=== PATIENT | female | born 1950 | race Caucasian/White ===

== ENCOUNTER 2024-04-07 10:03 | Inpatient (IN) | payer MEDICARE, SELFPAY ==
[2024-04-07] VITALS (14 sets, daily range): BP systolic 100–147; BP diastolic 61–95; PULSE 88–108; RESP 18–30; TEMP 36.2–36.8; O2SAT 92–98; BMI 21.9
--- NOTE | 2024-04-07 10:11 | EKG12_ITS ---
Test Reason : SOB Blood Pressure : / mmHG Vent. Rate : 094 BPM Atrial Rate : 094 BPM P-R Int : 172 ms QRS Dur : 076 ms QT Int : 352 ms P-R-T Axes : 077 -61 060 degrees QTc Int : 440 ms Normal sinus rhythm Biatrial enlargement Left axis deviation Inferior infarct , age undetermined Abnormal ECG Confirmed by MIYA RANGEL, SHANNAN ([id number]), web content editor AMNA TRIPP ([id number]) on 04/08/2024 1:25:01 PM Referred By: Confirmed By:SHANNAN HOLLIDAY MD
--- NOTE | 2024-04-07 10:12 | ED.VIS.DYS ---
HPI History of Present Illness Chief Complaint: Shortness of Breath Detail of Chief Complaint: Shortness of breath Informant: patient Narrative Narrative: Patient presents with shortness of breath that started around 4:30 AM. Patient states she is visiting family from [place] and brought some small tanks of O2 with her but is gone through on her oxygen. Patient normally wears home O2. Tells me she has had a bit of a cough and runny nose for several days. Denies fevers. Patient noted to be hypoxic on arrival to the emergency department. She denies chest pain. [facility] Medical History (Updated 04/07/24 @ 11:[address] Amanda Robles, DO) Hypothyroid COPD (chronic obstructive pulmonary disease) Allergy/AdvReac Type Severity Reaction Status Date / Time Penicillins Allergy Mild Upset Verified 04/07/24 10:16 Stomach Family History unable to obtain Surgical History no surgical history Social History Smoking Status: Current every day smoker tobacco type: cigarettes ROS ROS ED Review of Systems ROS Unobtainable: other Constitutional Constitutional ED: Reports lethargy; Denies chills, fever(s), sweats or weight loss Eyes Eyes: Denies blurry vision, change in vision or diplopia ENT ENT ED: Reports rhinorrhea; Denies sore throat Cardiovascular Cardiovascular: Denies chest pain, orthopnea or racing heartbeat Respiratory/Chest Respiratory/Chest: Reports cough, dyspnea and dyspnea on exertion; Denies orthopnea or sputum Gastrointestinal Gastrointestinal: Denies abdominal pain, diarrhea, nausea or vomiting Genitourinary Genitourinary ED: Denies dysuria, hematuria or urinary frequency Musculoskeletal Musculoskeletal: Denies arthralgias, back pain, myalgias or neck pain Integumentary Denies abscess, Abrasions or rash Neurologic Neurologic: Denies headache(s) or weakness Psychiatric Psychiatric: Denies anxiety, depression or suicidal thoughts Endocrine Endocrinology: Denies polydipsia, polyphagia or polyuria Hematologic/Lymphatic Hematologic/Lymphatic: Denies easy bleeding, easy bruising or lymphadenopathy Allergic/Immunologic Allergic/Immunologic ED: Denies mouth swelling, tongue swelling or urticaria EXAM Physical Exam Const Vital Signs: 04/07/24 10:06 04/07/24 10:10 04/07/24 10:10 Temperature 98.0 F 98.3 F Temperature Source Oral Oral Pulse Rate 108 H 108 H Respiratory Rate 30 H 25 H Respiratory Effort Short of Breath Respiratory Depth Deep Respiratory Pattern Tachypnea Blood Pressure 147/89 H 147/89 H Blood Pressure Mean 108 108 Pulse Ox 94 94 Oxygen Delivery Method Nasal Cannula Nasal Cannula Nasal Cannula Oxygen Flow Rate (L/min) 5.5 5.5 5.5 04/07/24 10:11 04/07/24 10:55 Temperature Temperature Source Pulse Rate 92 Respiratory Rate 20 H Respiratory Effort Respiratory Depth Respiratory Pattern Tachypnea Blood Pressure Blood Pressure Mean Pulse Ox Oxygen Delivery Method Nasal Cannula Oxygen Flow Rate (L/min) 5.5 Positive well nourished and well developed General Appearance ED: well developed and NAD HEENT Reports TM's clear and moist mucous membranes normocephalic and atraumatic; Negative for trauma or tenderness Tympanic Membrane ED: Yes TM's clear Eyes PERRL and EOMs intact bilaterally General Eye ED: Negative for pale conjunctiva or scleral icterus Neck no lymphadenopathy, supple and no JVD General: Negative for tenderness Chest Wall inspection of chest normal and palpation of chest normal Chest: Negative for tenderness Resp No normal respiratory effort and No clear to auscultation bilaterally Resp Narrative: Patient with tachypnea with mild conversational dyspnea. Mild accessory muscle use. Diminished breath sounds bilaterally with expiratory wheezes throughout. Effort and Inspection: Negative for respiratory distress or pain with movement Auscultation: Negative for rhonchi, wheezes or diminished lung sounds Cardio regular rate, regular rhythm, S1 normal heart sound, S2 normal heart sound and no murmurs Peripheral Pulses: pulses 2+ throughout GI normal to inspection, nondistended, normoactive bowel sounds, soft to palpation, non-tender, non-distended and no masses Back/Spine no CVA tenderness and no thoracic nor lumbar tenderness Extremity normal to inspection General Extremety ED: Negative for edema General Extremity: Negative for edema Neuro oriented x3, CN's II-XII intact bilaterally, no sensory deficits noted and gait normal Sensorium / Orientation: awake, alert, oriented to person, oriented to place and oriented to time Motor Exam: strength 5/5 throughout and strength abnormal Psych mental status grossly normal Skin no rashes or lesions noted and no wounds MDM MDM MDM Narrative Medical decision making narrative: Patient presents with O2 sat of 78% on room air. She is tachypneic with accessory muscle use. In the differential would be COPD exacerbation versus pneumothorax versus pneumonia or viral infection. Also given recent travel in the differential would be PE. IV line established. She was given DuoNeb aerosol as well as albuterol aerosols and started on Solu-Medrol 125 mg IV. CBC with differential obtained showed a white count of 10.2 with hemoglobin 13.9 and platelet count of 278. Chemistries unremarkable. Lactate normal. Troponin normal at 5. EKG obtained showed sinus rhythm with ventricular rate of 94 bpm. Biatrial enlargement. 1 view chest x-ray obtained interpreted by myself as hyperinflation without evidence of infiltrate or pneumothorax or acute disease process. On repeat evaluation at 11:08 AM she is feeling improved but still somewhat tachypneic and on 5 L satting 88 to 90%. Case will be discussed with hospitalist to evaluate for admission Lab Data Attestation: I reviewed the patient's lab results. Labs: Laboratory Results - last 24 hr 04/07/24 04/07/24 10:05 10:20 WBC 10.2 RBC 4.68 Hgb 13.9 Hct 44.3 MCV 94.7 MCH 29.7 MCHC 31.4 L RDW Std Deviation 47.1 H RDW Coeff of Erica 13.5 Plt Count 278 MPV 11.3 Immature Gran % (Auto) 0.400 Neut % (Auto) 64.1 Lymph % (Auto) 21.9 [place] % (Auto) 8.4 Eos % (Auto) 4.2 Baso % (Auto) 1.0 Absolute Neuts (auto) 6.5 Absolute Lymphs (auto) 2.23 Nucleated RBC % 0 D-Dimer Quant (PE/DVT) 0.39 Sodium 140 Potassium 3.7 Chloride 105 Carbon Dioxide 32.0 Anion Gap 3 L BUN 12 Creatinine 0.75 Estim Creat Clear Calc 48.06 Est GFR (MDRD) Af Amer 97 Est GFR (MDRD) Non-Af 80 BUN/Creatinine Ratio 16.0 Glucose 113 H Lactic Acid 1.0 Calcium 9.4 Troponin I High Sens 5 Radiography Diagnostic Testin view chest x-ray obtained interpreted by myself as no evidence of infiltrate or pneumothorax or acute disease process Discharge Plan Dx/Rx/DC Orders Clinical Impression: COPD exacerbation, Respiratory failure, Hypoxemia Disposition Disposition: [facility]
[2024-04-07] MEDS: 0.9% Normal Saline (1000mL) 1,000 ML 150 ML IV (10:20)
[2024-04-07] MEDS: MethylPREDNISolone 125 MG/2 ML Vial IV (10:21)
[2024-04-07 10:23] LABS: Absolute Lymphocyte Count 2.23 X10^3/uL (0.83-4.51); Absolute Neutrophil Count 6.5 X10^3/uL (2.0-7.7); Eosinophil# 0.43 X10^3/uL; Eosinophils% 4.2 % (0-5); Hematocrit 44.3 % (37-47); Hemoglobin 13.9 g/dL (12.0-15.0); Lymphocyte # 2.23 X10^3/ul (0.83-4.51); Lymphocyte % 21.9 % (19-41); Mean Corp Hgb Conc 31.4 g/dL (32-36); Mean Corpuscular Hgb 29.7 pg (27.0-32.0); Mean Corpuscular Volume 94.7 fL (81-99); Mean Platelet Vol. 11.3 fl (6.2-12.0); Monocyte# 0.85 X10^3/uL; Monocyte% 8.4 % (0-10); NRBC Flagged by Analyzer 0 % (0-5); Neutrophil # 6.52 X10^3/uL (2.7-7.7); Neutrophil % 64.1 % (47-70); Platelet Count 278 K/mm3 (150-450); RBC Distribution Width CV 13.5 % (11.6-14.6); RBC Distribution Width SD 47.1 fl (35.1-43.9); Red Blood Count 4.68 M/mm3 (4.2-5.4); White Blood Count 10.2 K/mm3 (4.4-11.0)
[2024-04-07] MEDS: Albuterol 2.5 MG/3 ML VIAL.NEB. INHALATION (10:42)
[2024-04-07] MEDS: Ipratropium/Albuterol Sulfate 3 ML AMPUL.NEB INHALATION ×3 (10:42→22:59)
[2024-04-07 10:44] LABS: D-Dimer Quantitative (DVT/PE) 0.39 FEU/ug/m (0.27-0.49)
[2024-04-07 10:48] LABS: Anion Gap 3 (5-15); BUN 12 mg/dL (7-18); Calcium,Total 9.4 mg/dL (8.5-10.1); Chloride 105 mmol/L (98-107); Creatinine, Serum 0.75 mg/dL (0.55-1.02); EST Glomerular Filtration Rate 80 mL/min (>60); Est Glom Filt Rate - Afr Amer 97 mL/min (>60); Estimated Creatinine Clearance 48.06 ml/min; Glucose 113 mg/dL (74-106); Potassium 3.7 mmol/L (3.5-5.1); Sodium Level 140 mmol/L (136-145); Troponin-I HS 5 pg/mL (3.0-54.0)
--- NOTE | 2024-04-07 10:55 | RAD_ITS ---
STUDY: X-RAY CHEST REASON FOR EXAM: Female, 73 years old. dyspnea TECHNIQUE: Single AP portable view of the chest. COMPARISON: None. FINDINGS: EKG leads overlie the chest Lungs are hyperexpanded with chronic interstitial changes, no superimposed acute pulmonary process. Normal size heart. Normal mediastinum and [place]. Normal visualized pulmonary arteries. Normal visualized aortic arch and descending thoracic aorta. Normal visualized thoracic spine. Normal visualized ribs, clavicles, and shoulders. There is no demonstrated abnormality of the visualized soft tissue structures of the upper abdomen. RAD/Chest 1 View (Portable) IMPRESSION: Hyperexpanded lungs without a superimposed acute pulmonary process Electronically Signed: Mykel Love MD at 11:20 EDT ,
--- NOTE | 2024-04-07 11:19 | NURSING ---
PCU [facility] RESP FAILURE, COPD EXAC, HYPOXEMIA
--- NOTE | 2024-04-07 12:09 | HP.PCM.HOS_ITS ---
HPI - General General Date of Admission: 04/07/24 Date of Service: 04/07/24 Chief Complaint: Increasing SOB HPI Narrative GIOVANI JOSEPH, is a 73 F with history of COPD and chronic hypoxic respiratory failure supposed to be on home O2 continuously and hypothyroidism as well as tobacco use who presented to [facility] ED 04/07/2024 for increasing shortness of breath and cough. She is from [place] but has been here for 8 weeks. Reports history of COPD for which she is on continuous home O2 and inhalers, reports that she has still been using her inhalers this prescription is running out and she is trying to have this moved from [place]. Does report she has not been using her continuous home O2 as she only was able to bring small tanks with her from [place]. She does not know how much home O2 she is supposed to be on notes she is supposed to use it day and night. Reports she has been somewhat stressed over the past couple days and was having increased shortness of breath on exertion over the past couple days but this morning woke up at 4:30 in the morning with significant shortness of breath and put on the O2 she had with her however due to worsening she presented to the ED. Was 78% on room air when she arrived. Endorses a stuffy nose and sore throat over the past day or so with no fevers or chills. Has a cough but with clear sputum. Also has some headache. Denies any other new or focal complaints [facility] Medical History (Updated 04/07/24 @ 11:[address] Amanda Robles, DO) COPD (chronic obstructive pulmonary disease) Hypothyroid Home Medications ?Medication ?Instructions ?Recorded ?Last Taken ?Type albuterol sulfate 90 mcg/actuation 2 inh inhalation Q4H 04/07/24 04/07/24 History breath activated powder inhaler ipratropium 0.5 mg-albuterol 3 mg 3 ml inhalation Q8H 04/07/24 04/07/24 History (2.5 mg base)/3 mL nebulization soln levocetirizine 5 mg tablet 5 mg PO QPM 04/07/24 04/06/24 History levothyroxine 100 mcg tablet 100 mcg PO DAILY 04/07/24 04/06/24 History Allergy/AdvReac Type Severity Reaction Status Date / Time Penicillins Allergy Mild Upset Verified 04/07/24 10:16 Stomach Family History unable to obtain Surgical History no surgical history Social History Smoking Status: Current every day smoker tobacco type: cigarettes ROS ROS Narrative General: Denies fever/chills HENT: Slight headache, stuffy nose, sore throat EYES: Denies changes in vision Resp: Increased cough with clear sputum, increasing shortness of breath Cardiac: Denies chest pain GI: Denies abdominal pain, denies changes in bowel, denies nausea/vomiting : Denies changes in urination Extremity: Denies swelling MSK: Denies weakness Neuro: Denies any numbness/tingling Heme: Denies any bleeding or bruising Skin: Denies rashes Psychiatric: Has had some recent stress Vital Signs Vital Signs Vital Signs: 04/07/24 10:06 04/07/24 10:10 04/07/24 10:10 Temperature 98.0 F 98.3 F Temperature Source Oral Oral Pulse Rate 108 H 108 H Respiratory Rate 30 H 25 H Respiratory Effort Short of Breath Respiratory Depth Deep Respiratory Pattern Tachypnea Blood Pressure 147/89 H 147/89 H Blood Pressure Mean 108 108 Pulse Ox 94 94 Oxygen Delivery Method Nasal Cannula Nasal Cannula Nasal Cannula Oxygen Flow Rate (L/min) 5.5 5.5 5.5 04/07/24 10:11 04/07/24 10:55 04/07/24 11:05 Temperature Temperature Source Pulse Rate 92 99 Respiratory Rate 20 H 22 H Respiratory Effort Respiratory Depth Respiratory Pattern Tachypnea Blood Pressure 123/93 H Blood Pressure Mean 103 Pulse Ox 95 Oxygen Delivery Method Nasal Cannula Nasal Cannula Oxygen Flow Rate (L/min) 5.5 4.5 04/07/24 11:10 04/07/24 11:30 04/07/24 12:00 Temperature 98.3 F 98.3 F 98.3 F Temperature Source Oral Oral Pulse Rate 99 98 88 Respiratory Rate 22 H 18 26 H Respiratory Effort Respiratory Depth Respiratory Pattern Blood Pressure 123/93 H 133/95 H 141/92 H Blood Pressure Mean 103 107 108 Pulse Ox 95 94 98 Oxygen Delivery Method Nasal Cannula Nasal Cannula Oxygen Flow Rate (L/min) 4.5 4.5 04/07/24 12:00 Temperature Temperature Source Pulse Rate 88 Respiratory Rate 26 H Respiratory Effort Respiratory Depth Respiratory Pattern Blood Pressure 141/92 H Blood Pressure Mean 108 Pulse Ox 98 Oxygen Delivery Method Nasal Cannula Oxygen Flow Rate (L/min) 4.5 Weight Weight: 54.431 kg Body Mass Index (BMI) 21.9 Physical Exam Narrative General: Alert, oriented, HEENT: Atraumatic, normocephalic Eyes: Anicteric, normal conjunctiva, extraocular movements grossly intact Neck: Supple Respiratory: Scattered wheezes but overall diminished, increased respiratory effort especially with conversation Cardiovascular: Regular rate and rhythm GI: Soft, nontender, nondistended Extremities: No edema Musculoskeletal: Moving all extremities Neuro: No overt focal neurological deficits Skin: No rashes appreciated Psych: Cooperative Results Lab / Micro Data 04/07/24 10:05 04/07/24 10:05 Labs: Laboratory Results - last 24 hr 04/07/24 10:05: WBC 10.2, RBC 4.68, Hgb 13.9, Hct 44.3, MCV 94.7, MCH 29.7, MCHC 31.4 L, RDW Std Deviation 47.1 H, RDW Coeff of Erica 13.5, Plt Count 278, MPV 11.3, Immature Gran % (Auto) 0.400, Neut % (Auto) 64.1, Lymph % (Auto) 21.9, [place] % (Auto) 8.4, Eos % (Auto) 4.2, Baso % (Auto) 1.0, Absolute Neuts (auto) 6.5, Absolute Lymphs (auto) 2.23, Nucleated RBC % 0, D-Dimer Quant (PE/DVT) 0.39, Sodium 140, Potassium 3.7, Chloride 105, Carbon Dioxide 32.0, Anion Gap 3 L, BUN 12, Creatinine 0.75, Estim Creat Clear Calc 48.06, Est GFR (MDRD) Af Amer 97, Est GFR (MDRD) Non-Af 80, BUN/Creatinine Ratio 16.0, Glucose 113 H, Calcium 9.4, Troponin I High Sens 5 04/07/24 10:20: Lactic Acid 1.0 Micro: Microbiology 04/07/24 10:25 Mucosa - Nose SARS-CoV-2, Influenza & RSV (PCR) - Final Imaging Radiology Impression Chest X-Ray 04/07/24 10:55 IMPRESSION: Hyperexpanded lungs without a superimposed acute pulmonary process Electronically Signed: Mykel Love MD at 11:20 EDT , Assessment & Plan Assessment/Plan (1) COPD exacerbation: PLAN: Plan # Acute on chronic hypoxic respiratory failure secondary to acute exacerbation of chronic COPD -Patient reportedly supposed to be on continuous home O2 but due to visiting from [place] she has not been able to wear her continuous O2 for the past 8 weeks -Chest x-ray no acute process -Lab workup overall unremarkable -Patient with increased shortness of breath and cough consistent with COPD exacerbation -Admit to floor, continuous O2 monitoring -COVID-negative, we will obtain respiratory panel, sputum culture if able -O2 in place, wean as tolerated -IV methylprednisone -Scheduled DuoNebs -Antibiotics: Azithromycin -Incentive spirometer -Mucinex -Will also consult case management #Hypothyroidism -Continue Synthroid #Tobacco use -Advise cessation -Nicotine replacement available if desired #DVT ppx: Lovenox subcu Anu Heredia MD Charges/Coding Visit Charges Inpatient E&M: 55058 Init Hosp L1
[2024-04-07] MEDS: Azithromycin 250 MG Tablet 500 MG PO (14:07)
[2024-04-07] MEDS: Loratadine 10 MG Tablet PO (21:15)
[2024-04-07] MEDS: guaiFENesin 1,200 MG Tablet 1200 MG PO (21:15)
[2024-04-07] MEDS: 0.9% Saline Lock 10 ML Syringe IV (21:18)
[2024-04-08] VITALS (15 sets, daily range): BP systolic 105–121; BP diastolic 60–75; PULSE 91–107; RESP 16–28; TEMP 36.1–36.7; O2SAT 3–98
[2024-04-08] MEDS: Ipratropium/Albuterol Sulfate 3 ML AMPUL.NEB INHALATION ×6 (02:46→23:29)
[2024-04-08] MEDS: Levothyroxine 100 MCG Tablet PO (05:07)
[2024-04-08 06:55] LABS: Absolute Lymphocyte Count 0.84 X10^3/uL (0.83-4.51); Absolute Neutrophil Count 7.2 X10^3/uL (2.0-7.7); Basophil# 0.02 X10^3/uL; Basophil% 0.2 % (0-1); Hematocrit 39.9 % (37-47); Hemoglobin 12.7 g/dL (12.0-15.0); Lymphocyte # 0.84 X10^3/ul (0.83-4.51); Lymphocyte % 9.7 % (19-41); Mean Corp Hgb Conc 31.8 g/dL (32-36); Mean Corpuscular Volume 94.3 fL (81-99); Mean Platelet Vol. 11.2 fl (6.2-12.0); Monocyte% 6.9 % (0-10); NRBC Flagged by Analyzer 0 % (0-5); Neutrophil # 7.17 X10^3/uL (2.7-7.7); Neutrophil % 82.5 % (47-70); Platelet Count 230 K/mm3 (150-450); RBC Distribution Width CV 13.5 % (11.6-14.6); RBC Distribution Width SD 46.4 fl (35.1-43.9); Red Blood Count 4.23 M/mm3 (4.2-5.4); White Blood Count 8.7 K/mm3 (4.4-11.0)
[2024-04-08 08:42] LABS: Anion Gap 5 (5-15); BUN 14 mg/dL (7-18); BUN/Creat Ratio 19.9 RATIO (10-20); Calcium,Total 9.2 mg/dL (8.5-10.1); Chloride 106 mmol/L (98-107); EST Glomerular Filtration Rate 86 mL/min (>60); Est Glom Filt Rate - Afr Amer 104 mL/min (>60); Estimated Creatinine Clearance 47.67 ml/min; Glucose 168 mg/dL (74-106); Magnesium 2.6 mg/dL (1.6-2.6); Potassium 4.2 mmol/L (3.5-5.1); Sodium Level 138 mmol/L (136-145); Thyroid Stim Hormone (TSH) 0.231 uIU/mL (0.358-3.740)
[2024-04-08] MEDS: Azithromycin 250 MG Tablet 500 MG PO (09:31)
[2024-04-08] MEDS: guaiFENesin 1,200 MG Tablet 1200 MG PO ×2 (09:31→21:07)
--- NOTE | 2024-04-08 14:13 | PCM.PN.HOSP ---
Reason for Visit Reason for Visit: Diagnoses Chronic obstructive pulmonary disease with (acute) exacerbation (04/07/24) Subjective Subjective Still having increased shortness of breath but slowly improving Objective Data Objective Data Vital Signs: Vital Signs Temp Pulse Resp BP Pulse Ox O2 Del Method O2 Flow Rate 97.6 F L 91 24 H 108/67 96 Nasal Cannula 2 04/08/24 09:30 04/08/24 11:13 04/08/24 11:13 04/08/24 09:30 04/08/24 09:32 04/08/24 09:32 04/08/24 09:32 Oxygen Flow Rate (L/min) 2 Oxygen Delivery Method Nasal Cannula Weight: 49.7 kg Body Mass Index (BMI) 20.0 Intake & Output: Intake and Output for Last 24 Hours 04/06/24 04/07/24 04/08/24 23:59 23:59 23:59 Intake Total 685 / 685 400 / 400 Balance 685 / 685 400 / 400 Lab / Micro Data 04/08/24 06:02 04/08/24 06:02 Labs: Laboratory Results - last 24 hr 04/08/24 06:02: WBC 8.7, RBC 4.23, Hgb 12.7, Hct 39.9, MCV 94.3, MCH 30.0, MCHC 31.8 L, RDW Std Deviation 46.4 H, RDW Coeff of Erica 13.5, Plt Count 230, MPV 11.2, Immature Gran % (Auto) 0.700, Neut % (Auto) 82.5 H, Lymph % (Auto) 9.7 L, [place] % (Auto) 6.9, Eos % (Auto) 0.0, Baso % (Auto) 0.2, Absolute Neuts (auto) 7.2, Absolute Lymphs (auto) 0.84, Nucleated RBC % 0, Sodium 138, Potassium 4.2, Chloride 106, Carbon Dioxide 27.0, Anion Gap 5, BUN 14, Creatinine 0.70, Estim Creat Clear Calc 47.67, Est GFR (MDRD) Af Amer 104, Est GFR (MDRD) Non-Af 86, BUN/Creatinine Ratio 19.9, Glucose 168 H, Calcium 9.2, Magnesium 2.6, TSH 0.231 L Micro: Microbiology 04/07/24 14:10 Sputum, Expectorated/Coughed Gram Stain - Final 04/07/24 14:10 Sputum, Expectorated/Coughed Respiratory Culture - Preliminary Appears to be normal respiratory levar. Further studies to follow. 04/07/24 14:10 Mucosa - Nose Respiratory Panel (PCR) - Final Rhinovirus 04/07/24 10:25 Mucosa - Nose SARS-CoV-2, Influenza & RSV (PCR) - Final Physical Exam Narrative General: Alert, oriented, HEENT: Atraumatic, normocephalic Eyes: Anicteric, normal conjunctiva, extraocular movements grossly intact Neck: Supple Respiratory: Diffuse wheezes, increased respiratory effort especially with conversation Cardiovascular: Regular rate GI: Soft, nontender, nondistended Extremities: No edema Musculoskeletal: Moving all extremities Neuro: No overt focal neurological deficits Skin: No rashes appreciated Psych: Cooperative Assessment & Plan Assessment/Plan (1) COPD exacerbation: PLAN: Plan # Acute on chronic hypoxic respiratory failure secondary to acute exacerbation of chronic COPD secondary to acute rhinovirus infection -Patient reportedly supposed to be on continuous home O2 but due to visiting from [place] she has not been able to wear her continuous O2 for the past 8 weeks -Chest x-ray no acute process -Lab workup overall unremarkable -Patient with increased shortness of breath and cough consistent with COPD exacerbation -Admit to floor, continuous O2 monitoring -COVID-negative, we will obtain respiratory panel, sputum culture if able -O2 in place, wean as tolerated -IV methylprednisone -Scheduled DuoNebs -Antibiotics: Azithromycin -Incentive spirometer -Mucinex -Will also consult case management -04/08: Patient dropped down to 84% on 3 L nasal cannula overnight and required up titration, O2 sats improving throughout the day today, patient found to be rhinovirus positive, continue IV steroids, continue nebs, continue azithromycin, supportive care. Continue to wean O2 as able Chronic medical problems: #Hypothyroidism -Continue Synthroid #Tobacco use -Advise cessation -Nicotine replacement available if desired #DVT ppx: Lovenox subcu Anu Heredia MD Charges/Coding Visit Charges Inpatient E&M: 60830 Subs Hosp L1
[2024-04-08] MEDS: 0.9% Saline Lock 10 ML Syringe IV (14:17)
[2024-04-08] MEDS: Loratadine 10 MG Tablet PO (21:07)
[2024-04-09] VITALS (10 sets, daily range): BP systolic 111–131; BP diastolic 66–83; PULSE 83–109; RESP 16–28; TEMP 36–36.6; O2SAT 93–96
[2024-04-09] MEDS: Levothyroxine 100 MCG Tablet PO (05:52)
[2024-04-09 06:41] LABS: Absolute Lymphocyte Count 1.11 X10^3/uL (0.83-4.51); Absolute Neutrophil Count 10.9 X10^3/uL (2.0-7.7); Basophil# 0.02 X10^3/uL; Basophil% 0.2 % (0-1); Hemoglobin 13.2 g/dL (12.0-15.0); Lymphocyte # 1.11 X10^3/ul (0.83-4.51); Lymphocyte % 8.7 % (19-41); Mean Corp Hgb Conc 31.4 g/dL (32-36); Mean Corpuscular Hgb 30.2 pg (27.0-32.0); Mean Corpuscular Volume 96.1 fL (81-99); Mean Platelet Vol. 10.3 fl (6.2-12.0); Monocyte# 0.68 X10^3/uL; Monocyte% 5.3 % (0-10); NRBC Flagged by Analyzer 0 % (0-5); Neutrophil % 84.9 % (47-70); Platelet Count 284 K/mm3 (150-450); RBC Distribution Width CV 13.6 % (11.6-14.6); RBC Distribution Width SD 48.7 fl (35.1-43.9); Red Blood Count 4.37 M/mm3 (4.2-5.4); White Blood Count 12.8 K/mm3 (4.4-11.0)
[2024-04-09 07:27] LABS: Anion Gap 6 (5-15); BUN 19 mg/dL (7-18); BUN/Creat Ratio 24.8 RATIO (10-20); Calcium,Total 9.2 mg/dL (8.5-10.1); Chloride 104 mmol/L (98-107); Creatinine, Serum 0.77 mg/dL (0.55-1.02); EST Glomerular Filtration Rate 78 mL/min (>60); Est Glom Filt Rate - Afr Amer 94 mL/min (>60); Estimated Creatinine Clearance 47.67 ml/min; Glucose 145 mg/dL (74-106); Potassium 4.3 mmol/L (3.5-5.1); Sodium Level 138 mmol/L (136-145)
[2024-04-09] MEDS: Ipratropium/Albuterol Sulfate 3 ML AMPUL.NEB INHALATION ×5 (07:59→22:52)
[2024-04-09] MEDS: Azithromycin 250 MG Tablet 500 MG PO (09:36)
[2024-04-09] MEDS: guaiFENesin 1,200 MG Tablet 1200 MG PO ×2 (09:36→21:40)
--- NOTE | 2024-04-09 11:25 | CASEMGMT ---
ANIBAL SUÁREZ Face to Face with patient for initial transition planning/care coordination assessment. ANIBAL SUÁREZ introduced self and role at [facility]. Patient lying in bed, alert and oriented. Patient willing to participate in assessment and is able to answer all questions appropriately. Care providers, pharmacy, and demographics verified. Strata: 2 PCP: Michelle Haider in [place] [phone], patient to schedule appointment when she returns home. Specialists: none Preferred Pharmacy: [facility] retail at discharge. Insurance: [employer] [facility] Prescription Benefit: yes Living Will/HPOA: yes, daughter Stephanie Alexis LNOK: daughter Living Arrangements: Patient lives in [facility] but has been visiting and staying with her daughter since mid January. Daughter lives in a 2 story duplex. Patient is independent and able to ambulate stairs. Transportation: self, daughter DME/HHC: Patient has nebulizer but is out of medications. Patient has home oxygen through [employer] and only has 6 mini tanks that she traveled with, which she has been exchanging at [facility]. Patient did not bring concentrator with her as it would not fit into her vehicle. Patient denies previous HHC or SNF. Patient wishes to discharge home. Patient is concerned about oxygen needs for when she travels back home to [place]. Patient states she stops in [place], [place] as a half way carmella. ANIBAL SUÁREZ called [facility] and spoke with Debbi. Patient is not able to rent POC. Per Debbi, patient can exchange portable tanks at any [facility] location. Debbi states she contacted [facility] office and provided this ANIBAL SUÁREZ inforamtion. ANIBAL SUÁREZ located locations along patient's route on [employer] website. ANIBAL SUÁREZ called [facility] saw office to inquire about patient having a concentrator at daughter home while she is visiting. Per Lyn, she will reach out to local branch in [place] to arrange for delivery. ANIBAL SUÁREZ provided daughter's information to arrange for delivery. ANIBAL SUÁREZ updated patient, daughter on speaker, phone regarding checkpoints along patient's route to home and concentrator delivery. Patient provided with contact info for branches and website information to plan her checkpoints. Daughter states she will assist with mapping route and DME agencies. Patient and daughter state they have no further needs or concerns at this time. CM to follow for discharge planning needs that may arise. Disposition Plan: Patient to discharge with home oxygen plan, daughter support, and follow-up plans in place. Dee Dee HARRISN, RN, CM
[2024-04-09] MEDS: 0.9% Saline Lock 10 ML Syringe IV (13:35)
--- NOTE | 2024-04-09 16:34 | CHAPLAIN ---
Type of Pastoral Visit _x__ Initial Visit ___ Follow-up Visit ___ On-call Visit ___ General Patient Visit ___ Spiritual Assessment ___ Family Conference ___ Bereavement ___ Rapid Response ___ Code Blue ___ Other (describe below) Pastoral Care Referral From _x__ Patient ___ Family ___ Nurse ___ Physician ___ Implementation Consultant ___ Manager User Interface ___ Other (describe below) Sacrament/Intervention _x__ Active listening ___ Anointing ___ Moravian ___ Bereavement ___ Communion ___ Sendy exploration ___ _x__ Life review _x__ Prayer ___ Reconciliation ___ Sacrament of Sick _x__ Supportive presence ___ Wedding ___ Other (describe below) Pastoral Comments patient reports feeling better but expresses disappointment that this occurred because she was to help take care of her grandchildren; [place] is from out [place]; pt is talkative and expressive thanks for the spiritual care support; pt has concerns about driving home; pt has family here and family in [place] where she lives
--- NOTE | 2024-04-09 17:25 | PCM.PN.HOSP ---
Reason for Visit Reason for Visit: Diagnoses Chronic obstructive pulmonary disease with (acute) exacerbation (04/07/24) Subjective Subjective Patient feels somewhat worse today, chest congestion, still significant diffuse wheezing Objective Data Objective Data Vital Signs: Vital Signs Temp Pulse Resp BP Pulse Ox O2 Del Method O2 Flow Rate 97.7 F L 108 H 18 111/69 94 Nasal Cannula 2 04/09/24 15:35 04/09/24 15:35 04/09/24 15:35 04/09/24 15:35 04/09/24 15:35 04/09/24 15:35 04/09/24 15:35 Oxygen Flow Rate (L/min) 2 Oxygen Delivery Method Nasal Cannula Weight: 49.7 kg Body Mass Index (BMI) 20.0 Intake & Output: Intake and Output for Last 24 Hours 04/07/24 04/08/24 04/09/24 23:59 23:59 23:59 Intake Total 685 / 685 860 / 1110 500 / 500 Balance 685 / 685 860 / 1110 500 / 500 Medical Nutrition Assessment Dietitian: Malnutrition Criteria Met Start: 04/08/24 15:57 Freq: Status: Active Protocol: Document 04/08/24 15:57 SB (Rec: 04/08/24 15:57 SB [id number]) Nutrition Malnutrition Evidence of Malnutrition Exists Yes Malnutrition (severe): Acute Illness/Injury Evidenced By Suboptimal Energy Intake ( Severe),Weight Loss (Severe), Physical Changes (Moderate) Clinical Problem Acute Disease or Injury Related Malnutrition Etiology severe related to inadequate oral intake Signs/Symptoms as evidenced by PO intake <50% of estimated nutritional needs x 2-3 weeks, 9.2% unintentional weight loss x 1 month per pt reports, moderate muscle wasting in clavicle region, and BMI 20.0. Status Active Problem Recommendation Dietitian Recommendations/Changes Continue liberal regular diet, encourage improved intake at home. Will order 240ml ensure clear with breakfast to try as pt is refusing ensure plus high protein. Will order 1 scoop of beneprotein TID with meals. Will monitor weight, as available. Reviewed and approved by Jackie Choudhury, MS, RD, LD. Lab / Micro Data 04/09/24 06:15 04/09/24 06:15 Labs: Laboratory Results - last 24 hr 04/09/24 06:15: WBC 12.8 H, RBC 4.37, Hgb 13.2, Hct 42.0, MCV 96.1, MCH 30.2, MCHC 31.4 L, RDW Std Deviation 48.7 H, RDW Coeff of Erica 13.6, Plt Count 284, MPV 10.3, Immature Gran % (Auto) 0.900, Neut % (Auto) 84.9 H, Lymph % (Auto) 8.7 L, [place] % (Auto) 5.3, Eos % (Auto) 0.0, Baso % (Auto) 0.2, Absolute Neuts (auto) 10.9 H, Absolute Lymphs (auto) 1.11, Nucleated RBC % 0, Sodium 138, Potassium 4.3, Chloride 104, Carbon Dioxide 28.0, Anion Gap 6, BUN 19 H, Creatinine 0.77, Estim Creat Clear Calc 47.67, Est GFR (MDRD) Af Amer 94, Est GFR (MDRD) Non-Af 78, BUN/Creatinine Ratio 24.8 H, Glucose 145 H, Calcium 9.2 Micro: Microbiology 04/07/24 10:20 Blood Culture (Wb) - Anticubital Right Blood Culture - Preliminary No growth in 48 hours. 04/07/24 14:10 Sputum, Expectorated/Coughed Gram Stain - Final 04/07/24 14:10 Sputum, Expectorated/Coughed Respiratory Culture - Preliminary Appears to be normal respiratory levar. Further studies to follow. 04/07/24 14:10 Mucosa - Nose Respiratory Panel (PCR) - Final Rhinovirus 04/07/24 10:25 Mucosa - Nose SARS-CoV-2, Influenza & RSV (PCR) - Final Physical Exam Narrative General: Alert, oriented HEENT: Atraumatic, normocephalic Eyes: Anicteric, normal conjunctiva, extraocular movements grossly intact Neck: Supple Respiratory: Diffuse wheezes, increased respiratory effort especially with conversation Cardiovascular: Regular rate GI: Soft, nontender, nondistended Extremities: No edema Musculoskeletal: Moving all extremities Neuro: No overt focal neurological deficits Skin: No rashes appreciated Psych: Cooperative Assessment & Plan Assessment/Plan (1) COPD exacerbation: PLAN: Plan # Acute on chronic hypoxic respiratory failure secondary to acute exacerbation of chronic COPD secondary to acute rhinovirus infection -Patient reportedly supposed to be on continuous home O2 but due to visiting from [place] she has not been able to wear her continuous O2 for the past 8 weeks -Chest x-ray no acute process -Lab workup overall unremarkable -Patient with increased shortness of breath and cough consistent with COPD exacerbation -Admit to floor, continuous O2 monitoring -COVID-negative, we will obtain respiratory panel, sputum culture if able -O2 in place, wean as tolerated -IV methylprednisone -Scheduled DuoNebs -Antibiotics: Azithromycin -Incentive spirometer -Mucinex -Will also consult case management -04/08: Patient dropped down to 84% on 3 L nasal cannula overnight and required up titration, O2 sats improving throughout the day today, patient found to be rhinovirus positive, continue IV steroids, continue nebs, continue azithromycin, supportive care. Continue to wean O2 as able -04/09: Continues to have increased work of breathing with poor reserve, waxing and waning course but patient clinically still unwell and not yet ready for discharge. Continue nebs, azithromycin, IV steroids Chronic medical problems: #Hypothyroidism -Continue Synthroid #Tobacco use -Advise cessation -Nicotine replacement available if desired #DVT ppx: Lovenox subcu Anu Heredia MD Charges/Coding Visit Charges Inpatient E&M: 72951 Subs Hosp L1
[2024-04-09] MEDS: Loratadine 10 MG Tablet PO (21:40)
[2024-04-10 02:50] VITALS: PULSE 90; RESP 20
[2024-04-10] MEDS: Ipratropium/Albuterol Sulfate 3 ML AMPUL.NEB INHALATION ×3 (02:51→10:39)
[2024-04-10 03:20] VITALS: BP 110/69; PULSE 105; RESP 16; TEMP 36.1; O2SAT 96
[2024-04-10] MEDS: Levothyroxine 100 MCG Tablet PO (05:37)
[2024-04-10] MEDS: 0.9% Saline Lock 10 ML Syringe IV (05:37)
[2024-04-10 07:41] VITALS: PULSE 108; RESP 22; O2SAT 93
[2024-04-10 08:31] LABS: Absolute Lymphocyte Count 0.98 X10^3/uL (0.83-4.51); Absolute Neutrophil Count 9.1 X10^3/uL (2.0-7.7); Basophil# 0.01 X10^3/uL; Basophil% 0.1 % (0-1); Hematocrit 41.7 % (37-47); Hemoglobin 12.8 g/dL (12.0-15.0); Lymphocyte # 0.98 X10^3/ul (0.83-4.51); Lymphocyte % 9.2 % (19-41); Mean Corp Hgb Conc 30.7 g/dL (32-36); Mean Corpuscular Hgb 29.4 pg (27.0-32.0); Mean Corpuscular Volume 95.6 fL (81-99); Mean Platelet Vol. 11.4 fl (6.2-12.0); Monocyte# 0.53 X10^3/uL; NRBC Flagged by Analyzer 0 % (0-5); Platelet Count 185 K/mm3 (150-450); RBC Distribution Width CV 13.7 % (11.6-14.6); RBC Distribution Width SD 48.9 fl (35.1-43.9); Red Blood Count 4.36 M/mm3 (4.2-5.4); White Blood Count 10.7 K/mm3 (4.4-11.0)
[2024-04-10 08:49] LABS: Anion Gap 7 (5-15); BUN 21 mg/dL (7-18); BUN/Creat Ratio 26.5 RATIO (10-20); Calcium,Total 9.3 mg/dL (8.5-10.1); Chloride 101 mmol/L (98-107); Creatinine, Serum 0.79 mg/dL (0.55-1.02); EST Glomerular Filtration Rate 75 mL/min (>60); Est Glom Filt Rate - Afr Amer 91 mL/min (>60); Estimated Creatinine Clearance 47.67 ml/min; Glucose 146 mg/dL (74-106); Sodium Level 138 mmol/L (136-145)
--- NOTE | 2024-04-10 09:00 | DCINST_ITS ---
Discharge Instructions Diet Discharge Diet: No restrictions Activity Discharge Activity: Return to Normal Activity Weight Bearing Status: Weight bearing as tolerated Dressing / Incision Call your doctor if you observe: Fever of 101 or Higher, Coldness, Increased Pain, Numbness or Tingling, Change in Color, Inability to urinate, Inability to have a bowel movement, Shortness of breath, Dizziness, Fainting spells, Swelling in the ankles, Chest pain, Prolonged hiccupping, Increased palpitations (irregular heartbeat) and Calf discomfort Follow Up Care When: IN 2 WEEKS Test Results: Test results from this visit will be discussed in further detail at your follow- up appointment, if applicable. Discharge Plan Admission Admit Date/Time: 04/07/24 12:09 Primary Reason for Your Visit: COPD exacerbation from rhinovirus Attending Provider: Fabio Pittman Primary Care Provider: Gabino Bolivar,Vanita Primary Consulting Providers: Anu Heredia Discharge Orders/Prescriptions Prescriptions: New dextromethorphan-guaifenesin [Mucinex DM] 60-1,200 mg tablet extended release 12 hr 1 tab PO Q12H 7 Days Qty: 14 0RF prednisone 20 mg tablet 40 mg PO DAILY 5 Days Qty: 10 0RF Continued albuterol sulfate 90 mcg/actuation aerosol powdr breath activated 2 inh inhalation Q4H levothyroxine 100 mcg tablet 100 mcg PO DAILY levocetirizine 5 mg tablet 5 mg PO QPM Changed ipratropium-albuterol 0.5 mg-3 mg(2.5 mg base)/3 mL solution for nebulization 3 ml inhalation Q6H PRN (Reason: sob) 30 Days Qty: 180 0RF Referrals / Follow Up: Care Physician,No Primary [Primary Care Provider] - Disposition Disposition (needs filled in before D/C Order can be placed): Home, Self Care
--- NOTE | 2024-04-10 09:05 | PCM.DC.SUM ---
Providers Date of Admission: 04/07/24 Date of Discharge: 04/10/24 Primary Care Physician: No Primary Care Phys Reason For Visit: RESP FAILURE, COPD EXACERBATION, HYPOXEMIA Diagnosis Discharge Diagnosis (1) COPD exacerbation: Status: Chronic Code(s): J44.1 - Chronic obstructive pulmonary disease with (acute) exacerbation Plan # Acute on chronic hypoxic respiratory failure secondary to acute exacerbation of chronic COPD secondary to acute rhinovirus infection -Patient reportedly supposed to be on continuous home O2 but due to visiting from [place] she has not been able to wear her continuous O2 for the past 8 weeks -Chest x-ray no acute process -Lab workup overall unremarkable. COVID-negative. Respiratory panel positive for rhinovirus. Triple PCR for COVID-19, influenza and RSV are negative. Patient was treated with IV Solu-Medrol, completed 3 days of Zithromax, bronchodilator and Mucinex DM, incentive spirometry/PEP. 04/10: Was smoking 4 cigarettes daily for long time, quit 2 years ago. Patient shortness of breath is much improved. Patient has chronic wheezing. She wants to go home. On baseline 2 L of oxygen. Home oxygen qualification test. Patient completed 3 days of azithromycin 500 mg daily. Prescription for DuoNeb nebulization, Mucinex DM and prednisone burst therapy given. Discharge medication reconciliation done. Discharge follow-up instructions completed. Discharge process discussed with the patient and all questions were answered to patient's satisfaction. Follow with PCP in 1 to 2 weeks Total time spent, exact 35 minutes on discharge meds reconciliation, examination, coordination of care with nurses and ancillary staff, review of imaging and blood test and discussion with the patient on follow-up instructions. Medications at Discharge Home Medications albuterol sulfate 90 mcg/actuation breath activated powder inhaler 2 inh inhalation Q4H 04/07/24 levocetirizine 5 mg tablet 5 mg PO QPM 04/07/24 levothyroxine 100 mcg tablet 100 mcg PO DAILY 04/07/24 dextromethorphan-guaifenesin ER 60 mg-1,200 mg tab,extend release,12hr (Mucinex DM) 1 tab PO Q12H 7 days #14 tabs 04/10/24 ipratropium 0.5 mg-albuterol 3 mg (2.5 mg base)/3 mL nebulization soln 3 ml inhalation Q6H PRN sob 1 month #180 mL 04/10/24 prednisone 20 mg tablet 40 mg (2 x 20 mg) PO DAILY 5 days #10 tabs 04/10/24 Physical Exam Narrative Seen and examined. This shortness of breath is much improved. No chest pain. No fever. Physical exam General: Alert, Oriented x3, Cooperative. BMI 28.0 kg/m? HEENT: Atraumatic, PERRLA, EOMI, Normocephalic Oral: No Gingival or Mucosal Lesions/ Ulcerations Neck: Supple, No JVD, Negative Carotid Bruits Chest wall/Lungs: Air entry diminished in bilateral lung bases. Bilateral wheezing. No tachypnea. Baseline oxygen. Cardiovascular: Regular rate, Regular Rhythm, Normal S1, Normal S2, No M/G/R Abdomen: Bowel Sounds Present, Soft, Non Tender, Non-Distended : No dysuria. No renal angle tenderness. No suprapubic tenderness. Extremities: No edema, Capillary Refill Less than 3 Seconds Skin: No rashes, No breakdown Musculoskeletal: No Tenderness to Palpation of Joints or Extremities. Mild decrease muscle bulk of extremities, loss of subcutaneous fat suggestive mild chronic malnutrition due to emphysema Neurological: Cranial nerves II-XII grossly intact, DTR 2+/4. No acute focal neurological deficit. Psych/Mental Status: Normal Affect, Appropriate. Medical Records Data Medical Nutrition Assessment Dietitian: Malnutrition Criteria Met Start: 04/08/24 15:57 Freq: Status: Active Protocol: Document 04/08/24 15:57 (Rec: 04/08/24 15:57 [id number]) Nutrition Malnutrition Evidence of Malnutrition Exists Yes Malnutrition (severe): Acute Illness/Injury Evidenced By Suboptimal Energy Intake ( Severe),Weight Loss (Severe), Physical Changes (Moderate) Clinical Problem Acute Disease or Injury Related Malnutrition Etiology severe related to inadequate oral intake Signs/Symptoms as evidenced by PO intake <50% of estimated nutritional needs x 2-3 weeks, 9.2% unintentional weight loss x 1 month per pt reports, moderate muscle wasting in clavicle region, and BMI 20.0. Status Active Problem Recommendation Dietitian Recommendations/Changes Continue liberal regular diet, encourage improved intake at home. Will order 240ml ensure clear with breakfast to try as pt is refusing ensure plus high protein. Will order 1 scoop of beneprotein TID with meals. Will monitor weight, as available. Reviewed and approved by Jackie Choudhury, MS, RD, LD. Weight / BMI Weight Weight: 109 lb 9.116 oz Body Mass Index (BMI) 20.0 ABG / Lab / Microbiology Data 04/10/24 07:21 04/10/24 07:21 Laboratory: Laboratory Results - last 24 hr 04/10/24 07:21: WBC 10.7, RBC 4.36, Hgb 12.8, Hct 41.7, MCV 95.6, MCH 29.4, MCHC 30.7 L, RDW Std Deviation 48.9 H, RDW Coeff of Erica 13.7, Plt Count 185, MPV 11.4, Immature Gran % (Auto) 0.700, Neut % (Auto) 85.0 H, Lymph % (Auto) 9.2 L, [place] % (Auto) 5.0, Eos % (Auto) 0.0, Baso % (Auto) 0.1, Absolute Neuts (auto) 9.1 H, Absolute Lymphs (auto) 0.98, Nucleated RBC % 0, Sodium 138, Potassium 4.0, Chloride 101, Carbon Dioxide 30.0, Anion Gap 7, BUN 21 H, Creatinine 0.79, Estim Creat Clear Calc 47.67, Est GFR (MDRD) Af Amer 91, Est GFR (MDRD) Non-Af 75, BUN/Creatinine Ratio 26.5 H, Glucose 146 H, Calcium 9.3 Microbiology: Microbiology 04/07/24 14:10 Sputum, Expectorated/Coughed Gram Stain - Final 04/07/24 14:10 Sputum, Expectorated/Coughed Respiratory Culture - Final 04/07/24 10:20 Blood Culture (Wb) - Anticubital Right Blood Culture - Preliminary No growth in 48 hours. 04/07/24 14:10 Mucosa - Nose Respiratory Panel (PCR) - Final Rhinovirus 04/07/24 10:25 Mucosa - Nose SARS-CoV-2, Influenza & RSV (PCR) - Final D/C Instructions Discharge Diet: No restrictions Weight Bearing Status: Weight bearing as tolerated Call your doctor if you observe: Fever of 101 or Higher, Coldness, Increased Pain, Numbness or Tingling, Change in Color, Inability to urinate, Inability to have a bowel movement, Shortness of breath, Dizziness, Fainting spells, Swelling in the ankles, Chest pain, Prolonged hiccupping, Increased palpitations (irregular heartbeat) and Calf discomfort When: IN 2 WEEKS Meaningful Use Info Meaningful Use Meaningful Use Diagnoses (Choose all that apply): None applicable Ischemic Stroke Statin Dosing Therapy Reference: STATIN DOSE THERAPY REFERENCE: * Patients > 75 years receive moderate or high dose statin therapy. * Patients 75 years or YOUNGER should receive HIGH intensity statin dose unless contraindicated. You will be required to document reason for non-treatment if statin daily dose does not meet guidelines. HIGH DOSE STATIN THERAPY DAILY Atorvastatin > than or = to 40 mg Rosuvastatin > than or = to 20 mg Amlodipine + Atorvastatin > than or = to 2.5/40 mg Ezetimibe + Simvastatin 10/80 mg Simvastatin 80mg Discharge Plan Admission Admit Date/Time: 04/07/24 12:09 Primary Reason for Your Visit: COPD exacerbation from rhinovirus Attending Provider: Fabio Pittman Primary Care Provider: Care Physician,No Primary Consulting Providers: Anu Heredia Discharge Orders/Prescriptions Prescriptions: New dextromethorphan-guaifenesin [Mucinex DM] 60-1,200 mg tablet extended release 12 hr 1 tab PO Q12H 7 Days Qty: 14 0RF prednisone 20 mg tablet 40 mg PO DAILY 5 Days Qty: 10 0RF Continued albuterol sulfate 90 mcg/actuation aerosol powdr breath activated 2 inh inhalation Q4H levothyroxine 100 mcg tablet 100 mcg PO DAILY levocetirizine 5 mg tablet 5 mg PO QPM Changed ipratropium-albuterol 0.5 mg-3 mg(2.5 mg base)/3 mL solution for nebulization 3 ml inhalation Q6H PRN (Reason: sob) 30 Days Qty: 180 0RF Referrals / Follow Up: Care Physician,No Primary [Primary Care Provider] - Disposition Disposition (needs filled in before D/C Order can be placed): Home, Self Care Charges/Coding Visit Charges Inpatient E&M: 81980 Disch Hosp >30min
[2024-04-10 09:11] VITALS: BP 117/68; PULSE 110; RESP 18; TEMP 36.7; O2SAT 95
[2024-04-10] MEDS: guaiFENesin 1,200 MG Tablet 1200 MG PO (09:15)
[2024-04-10] MEDS: Azithromycin 250 MG Tablet 500 MG PO (09:15)
--- NOTE | 2024-04-10 09:23 | CASEMGMT ---
Addendum entered by Denisse Heath 04/10/24 11:04: TC to [facility], spoke with Dejah, pt concentrator will be delivered to the dtrs home at noon today. Original Note: RN CM into pt room, pt sitting up in bed. Pt states that her concentrator and 3 mini tanks will be delivered this morning to her dtr's home. Pt brother will be transporting her home. Pt has checkpoints for the [place] for when she goes back to [place]. Pt denies any further homegoing needs at this time.
[2024-04-10 10:55] VITALS: PULSE 102; RESP 17
--- NOTE | 2024-04-10 10:55 | PHA.DC_ITS ---
Pharmacy [facility] has performed discharge medication reconciliation and counseling for this patient. 1. PREDNISONE 40MG PO DAILY X 5 DAYS 2. MUCINEX DM 1T PO Q12 X 7 DAYS The patient's discharge medication list was reviewed for discrepancies and discrepancies were resolved. The patient was counseled on the following discharge medications and changes in medications for homegoing were reviewed. The Reason for Use, instructions for use, and potential side effects were reviewed for all new medications. The patient's questions regarding all of their medications were answered. The patient was able to verbally demonstrate an understanding of their discharge medications. Medications at Discharge Home Medications albuterol sulfate 90 mcg/actuation breath activated powder inhaler 2 inh inhalation Q4H 04/07/24 levocetirizine 5 mg tablet 5 mg PO QPM 04/07/24 levothyroxine 100 mcg tablet 100 mcg PO DAILY 04/07/24 dextromethorphan-guaifenesin ER 60 mg-1,200 mg tab,extend release,12hr (Mucinex DM) 1 tab PO Q12H 7 days #14 tabs 04/10/24 ipratropium 0.5 mg-albuterol 3 mg (2.5 mg base)/3 mL nebulization soln 3 ml inhalation Q6H PRN sob 1 month #180 mL 04/10/24 prednisone 20 mg tablet 40 mg (2 x 20 mg) PO DAILY 5 days #10 tabs 04/10/24
== END 2024-04-10 14:01 | disposition home or self-care (01) | DRG 190 ==
LOC: ED 11:17 → PCU 11:51
PROVIDERS: Admitting Provider Internal Medicine; Emergency Provider Emergency Medicine; Visit Provider Internal Medicine
DX: J44.1 Chronic obstructive pulmonary disease with (acute) exacerbation (principal); J96.21 Acute and chronic respiratory failure with hypoxia; E43 Unspecified severe protein-calorie malnutrition; E03.9 Hypothyroidism, unspecified; B34.8 Other viral infections of unspecified site; Z79.890 Hormone replacement therapy; Z87.891 Personal history of nicotine dependence
CPT/HCPCS: 36415; 71045; 80048; 83605; 83735; 84443; 84484; 85025; 85379; 87040; 87070; 87205; 87631; 87633; 93005; 94640; 94668; 97802; 99285; 99406; J7030; A4216